=== PATIENT | male | born 1970 ===

== ENCOUNTER 2019-06-17 16:58 | Emergency (ER) | payer OTHER ==
--- NOTE | 2019-06-17 17:37 | UC ---
Ear Complaint HPI - HPI Summary HPI Summary: 49 yo male with left ear pain and decreased hearing x 1 weeks has been on amox x 3 days pain decreased but still hard of hearing no fever chronic sinus issues - History of Current Complaint Chief Complaint: UCEar Stated Complaint: EAR COMPLAINT Time Seen by Provider: 06/17/19 17:13 Hx Obtained From: Patient Onset/Duration: Gradual Onset Severity Initially: Mild Severity Currently: Mild Pain Intensity: 2 Pain Scale Used: 0-10 Numeric Aggravating Factors: Nothing Alleviating Factors: Nothing Associated Signs/Symptoms: Positive: Hearing Loss Related History: Seasonal Allergies - Allergies/Home Medications Allergies/Adverse Reactions: Allergies Allergy/AdvReac Type Severity Reaction Status Date / Time No Known Allergies Allergy Verified 06/17/19 17:09 Home Medications: Home Medications Amoxicillin 875 mg PO TID 06/17/19 [History Confirmed 06/17/19] Levothyroxine TAB* [Synthroid 75 MCG TAB*] 75 mcg PO DAILY 06/17/19 [History Confirmed 06/17/19] PMH/Surg Hx/FS Hx/Imm Hx Previously Healthy: Yes Endocrine History: Hypothyroidism - Surgical History Surgical History: None - Family History Known Family History: Positive: Hypertension - Social History Alcohol Use: None Substance Use Type: None Smoking Status (MU): Never Smoked Tobacco Review of Systems All Other Systems Reviewed And Are Negative: Yes Constitutional: Positive: Negative Skin: Positive: Negative Eyes: Positive: Negative ENT: Positive: Ear Ache, Sinus Congestion Respiratory: Positive: Negative Cardiovascular: Positive: Negative Gastrointestinal: Positive: Negative Genitourinary: Positive: Negative Motor: Positive: Negative Neurovascular: Positive: Negative Musculoskeletal: Positive: Negative Neurological: Positive: Negative Psychological: Positive: Negative Physical Exam Triage Information Reviewed: Yes Appearance: Well-Appearing, No Pain Distress, Well-Nourished Vital Signs: Initial Vital Signs Temp 97.6 F 06/17/19 17:02 Pulse 70 06/17/19 17:02 Resp 12 06/17/19 17:02 BP 118/73 06/17/19 17:02 Pulse Ox 97 06/17/19 17:02 Vital Signs Reviewed: Yes Eyes: Positive: Conjunctiva Clear ENT: Positive: TM bulging, TM dull, Uvula midline, Other - cerumen left EAC. Negative: Hearing grossly normal - decreased hearing left ear, Nasal congestion , Nasal drainage, Trismus, Muffled voice, Hoarse voice, Dental tenderness Neck: Positive: Supple, Nontender, No Lymphadenopathy Respiratory: Positive: Lungs clear, Normal breath sounds, No respiratory distress Cardiovascular: Positive: RRR, No Murmur Musculoskeletal: Positive: ROM Intact, No Edema Neurological: Positive: Alert Psychological Exam: Normal Skin Exam: Normal Re-Evaluation - Re-Evaluation First Eval Re-Evaluation Time: 17:42 Change: Improved - cerumen out/TM red and bulging Ear Complaint Course/Dx - Differential Dx/Diagnosis Provider Diagnosis: Impacted cerumen, left ear, Left otitis media Discharge - Sign-Out/Discharge Documenting (check all that apply): Patient Departure All imaging exams completed and their final reports reviewed: No Studies - Discharge Plan Condition: Stable Disposition: HOME Patient Education Materials: Ear Infection (ED) Referrals: [facility] – [place] [facility] REFERRAL [Outside] - 2 Weeks Additional Instructions: continue amox until finished use your flonase 2 sprays in each nostril twice daily recheck in 2 weeks if hearing not back to normal - Billing Disposition and Condition Condition: STABLE Disposition: Home
== END 2019-06-17 17:50 | disposition home or self-care (01) ==
LOC: UCEAST 16:58
DX: H66.92 Otitis media, unspecified, left ear (principal); H61.22 Impacted cerumen, left ear; E03.9 Hypothyroidism, unspecified
CPT/HCPCS: 99202; G0463